=== PATIENT | female | born 1970 | race Caucasian/White ===

== ENCOUNTER 2017-01-23 19:21 | Emergency (ER) | payer MEDICAID ==
[~2017-01-23 19:21] MED LIST: AMBIEN5 MG; BUSPAR10 MG; CYMBALTA60 MG; PEN-VEE K500 MG PO; TRAZODONE HCL150 MG
[2017-01-23] MEDS ORDERED: XANAX1 M1 PO (19:28)
== END 2017-01-23 20:52 ==
LOC: EDMED 19:21
DX: S39.012A Strain of muscle, fascia and tendon of lower back, initial encounter (principal); S70.01XA Contusion of right hip, initial encounter; F17.210 Nicotine dependence, cigarettes, uncomplicated; W19.XXXA Unspecified fall, initial encounter